=== PATIENT | male | born 1935 | race Caucasian/White ===

== ENCOUNTER 2017-10-11 10:20 | Inpatient (IN) | payer MEDICARE, BC ==
[2017-10-11] MEDS ORDERED: ISOVUE-370 76%-LOCM 1 ML ONE (11:48)
[2017-10-11 12:12] LABS: #Basophils 0.1 thou/uL (0.0-0.2); #Eosinphils 0.1 thou/uL (0.0-0.7); #Lymphocytes 1.7 thou/uL (1.20-3.40); #Monocytes 0.6 thou/uL (0.11-0.59); #Neutrophils 2.8 thou/uL (1.40-6.50); %Eosinophils 2.2 % (0.0-10.0); %Lymphocytes 32.4 % (21.0-51.0); %Monocytes 11.9 % (0.0-10.0); %Neutrophils 52.5 % (42.0-75.0); Hemoglobin 14.1 g/dL (14.0-18.0); Mean Corpuscular HGB CONC 34.9 g/dL (32.0-36.0); Mean Corpuscular Hemoglobin 31.3 pg (27.0-31.0); Mean Corpuscular Volume 89.5 fL (78.0-98.0); Mean Platelet Volume 5.8 fL (7.4-10.4); Platelet Count 218 thou/uL (130-400); RBC Distribution Width 12.2 % (11.5-14.5); Red Blood Cell (RBC) Count 4.52 mill/uL (4.70-6.10); White Blood Cell (WBC) Count 5.3 thou/uL (4.8-10.8)
[2017-10-11 12:21] LABS: PTT 27.6 SEC (22.9-36.1); Prothrombin Time 13.5 SEC (12.0-14.7)
[2017-10-11 12:34] LABS: ALT (SGPT) 27 U/L (8-55); AST (SGOT) 20 U/L (5-34); Albumin 3.9 g/dL (3.4-4.8); Alkaline Phosphatase 68 U/L (40-150); Anion Gap 12 mmol/L (10-20); BUN (Urea Nitrogen) 25 mg/dL (8.4-25.7); Bilirubin, Total 0.8 mg/dL (0.2-1.2); CK (CPK) 33 U/L (30-200); Calc. Creatinine Clearance 0 mL/min (70-130); Carbon Dioxide 22 mmol/L (23-31); Chloride 103 mmol/L (98-107); Estimated GFR-MDRD 55; Globulin 2.5 g/dL (2.4-3.5); Glucose 130 mg/dL (83-110); Potassium 4.8 mmol/L (3.5-5.1); Protein, Total 6.4 g/dL (5.8-8.1); Sodium 132 mmol/L (136-145)
[2017-10-11 12:37] LABS: CKMB 1.3 ng/mL (0-6.6); Troponin I Less than 0.010 ng/mL (< 0.028)
[2017-10-11] MEDS ORDERED: Aspirin 325 MG TAB ONE (12:40)
--- NOTE | 2017-10-11 13:37 | CT ---
NONCONTRAST CT HEAD: DAET: 10/11/17. HISTORY: Vertical nystagmus that started this morning. COMPARISON: None available. FINDINGS: There is no evidence of a hemorrhage, acute infarction, mass effect, or midline shift. There is mild cerebral volume loss. The ventricular system is normal in size, shape, and position. The visualize d paranasal sinuses and mastoid air cells are clear. Calvarial structures are intact. IMPRESSION: 1. No acute intracranial abnormality is demonstrated. 2. Mild cerebral volume loss. 3. The above findings were discussed with Dr. Calderón in the emergency department on 10/11/17 at 1114 [facility]. CODE CR POS: [id number]
--- NOTE | 2017-10-11 14:01 | CT ---
CT ANGIOGRAM HEAD WITH IV CONTRAST AND 3D RECONSTRUCTIONS CT ANGIOGRAM NECK WITH IV CONTRAST AND 3D RECONSTRUCTIONS: DATE: 10/11/17. HISTORY: Vertical nystagmus. FINDINGS: CTA NECK: Vascular calcifications are seen in the visualized aortic arch and descending thoracic aorta with min imal vascular calcifications involving the great vessels. There is a normal arrangement of great ves sels at the aortic arch. The innominate artery is patent, but there is a focal area of narrowing inv olving the proximal right subclavian artery with moderate focal area of narrowing present. The bilat eral subclavian arteries are otherwise patent. Bilateral common carotid arteries are patent. There is mild calcified atherosclerotic plaque seen involving the region of the carotid bulbs and pro ximal internal carotid arteries bilaterally. There is less than 50% maximal stenosis in the bilatera l internal carotid arteries according to NASCET criteria. There is dense calcification seen at the origin of the left vertebral artery limiting adequate evalua tion of the lumen, but there is at least mild narrowing at the origin of the left vertebral artery. The vertebral arteries are otherwise patent and codominant. Vascular calcifications are seen involvi ng the distal vertebral arteries, but no focal narrowing is present. Degenerative changes are seen in the cervical spine. There is partial visualization of a dual-lead l eft subclavian cardiac pacemaking device. Mild apical scarring is present. CT ANGIOGRAM HEAD: The bilateral middle cerebral and anterior cerebral arteries are patent. The distal bilateral verteb ral arteries are patent. The basilar artery and posterior communicating arteries are patent. No foc al stenosis or branch occlusion is seen. There is no aneurysm seen within the limitations of the angela hnique of this examination. IMPRESSION: 1. Mild atherosclerotic plaque in the region of the carotid bulbs, but there is no focal significant stenosis within the carotid arteries bilaterally by NASCET criteria. 2. Mild narrowing at the origin of the left vertebral artery, but there is less than 50% narrowing a ccording to NASCET criteria. The vertebral arteries are otherwise codominant and patent. 3. There is artifact seen at the junction of the innominate artery and right subclavian artery, but there is mild to moderate narrowing of the origin of the right subclavian artery. 4. No focal stenosis is seen involving the [place] or vertebrobasilar system. 5. The above findings were discussed with Dr. Calderón in the emergency department on 10/11/17 at 1138 [facility]. CODE CR POS: [id number]
[2017-10-11] MEDS ORDERED: hydrALAZINE 20 MG/ML VIAL SLOW IVP PRN (15:10)
[2017-10-11] MEDS ORDERED: Dextrose 50% Abboject 50 ML SYRINGE SLOW IVP PRN (15:11)
[2017-10-11] MEDS ORDERED: Dextrose 5% in Water 1,000 ML IV PRN (15:11)
--- NOTE | 2017-10-11 15:26 | PDOC.EVN ---
Event Note - Event Note Event Note: h&p [id number]
--- NOTE | 2017-10-11 16:11 | HP ---
PRIMARY CARE PHYSICIAN: Dr. Calloway. CHIEF COMPLAINT: Dizziness. HISTORY OF PRESENT ILLNESS: An 82-year-old male with a past history of type 2 diabetes, squamous luz l carcinoma, hypertension, atrial pacemaker, urinary retention, who presents with a chief complaint o f dizziness and double vision. The patient states that this started yesterday evening around 3:00, i n the morning and has been persistent. It is accompanied by a significant amount of sensation that t he room is spinning around him and inability to ambulate due to gait issues. When he stands up, the patient states that he feels like he is about to fall down. The patient denies any prior similar iss ues. He states that when he only views through one eye, he does not have double vision. His double vision only occurs when he views objects through two eyes. He has a known history of floaters and of macular degeneration, but in terms of visual acuity, has not noticed any difference from his baselin e. He denies any generalized weakness and denies any prior similar episodes either. REVIEW OF SYSTEMS: As per HPI. Constitutional: The patient endorses having a 20 pound weight loss over the last few months. Denies any fevers, denies any chills. HEENT: As per above in regards to the dizziness and visual changes. The patient also endorses longstanding hearing difficulties, speci fically in his left ear. The patient does have intermittent floaters, which are currently not presen t in the emergency department. Respiratory: Denies any shortness of breath, cough, congestion, uppe r respiratory symptoms. Cardiovascular: Denies any chest pain, denies any chest pressure. He state s that he sees a automotive software engineer over at [place] [facility] [place] and has his pacer interrogated every 3 months, has not been noted to have any issues with it. Gastrointestinal: The patient then reports a loss of appetite over the last 3-6 months that has been progressive, intermittent episodes of nausea, but no ne that are directly related with his acute episode of double vision. Denies any issues with diarrhe a, although has constipation and occasionally takes MiraLax roughly 2 times a week. Genitourinary: Recently had issues with urinary retention. He was seen by urologist approximately a week ago and wa s taken off of a fair number of steroids and subsequently had his urinary retention self resolved. P atient states that he had a prostate exam at that point in time and was not told of any known abnorma lities. Musculoskeletal: The patient has been having a significant amount of cervical myalgias and has received it sounds like 3 steroid injections over his left shoulder. Remainder of the review of systems is otherwise negative. PAST MEDICAL AND SURGICAL HISTORY: As per above, significant for, 1. Type 2 diabetes. 2. Hypertension. 3. Squamous cell carcinoma, status post Mohs surgery x7. 4. Status post atrial pacemaker for which he sees a automotive software engineer, but does not have any focal fixed other cardiac diagnoses. 5. Hyperlipidemia. 6. Status post pacemaker approximately 15 years ago. 7. Osteoporosis. HOME MEDICATIONS: Please see the EMR for full details. The patient currently has no medications lis moises in the EMR, but verbally tells me that he takes metformin 500 p.o. b.i.d., takes simvastatin in t he evening and also takes calcium and vitamin D. Other than his medications listed above, denies any over the counter or recent herbals, vitamins or supplements over the last 3 weeks. He states that f or his shoulder and neck issues approximately 2 weeks ago, was given steroid injections along with or al steroids along with hydrocodone and Flexeril. He has been taken off of these medications in the l ast week after seeing the urologist. FAMILY HISTORY: Denies any family history of similar issues. Denies any known family history of str jose francisco. SOCIAL HISTORY: Lives at home with his . Denies any alcohol, tobacco or illicit drug use. PHYSICAL EXAMINATION: GENERAL: The patient is awake, alert, conversant, in no acute distress, lying in the hospital bed. HEENT: Normocephalic, atraumatic. Slightly dry mucous membranes. The patient has some difficulty w ith lateral adduction. CARDIOVASCULAR: S1, S2. No murmurs, rubs or gallops. Pulses 2+ bilateral upper extremities. No pi tting pedal edema. RESPIRATORY: Reasonable air movement. No conversational dyspnea. No wheezes, no rales, no rhonchi. Clear to auscultation bilaterally. ABDOMEN: Positive bowel sounds, soft, nontender to palpation. MUSCULOSKELETAL: Moving all 4 extremities equally. Able to sit up in the stretcher with minimal ass ist. LABORATORY DATA AND IMAGING: On 10/11/2017, CT angiography. Impression: "Mild atherosclerotic plaqu e in the region of the carotid bulbs, but there is no focal significant stenosis within the carotid a rteries bilaterally". Mild narrowing at the origin of the left vertebral artery, but there is less t abreu 50% narrowing according to NASCET criteria. The vertebral arteries are otherwise codominant and patent. There is artifact seen at the junction of the innominate artery and right subclavian artery, but there is mild to moderate narrowing of the origin of the right subclavian artery. No focal sten osis is seen involving the [place] or vertebrobasilar system.". IMAGING: On 10/11/2017, brain CT. Impression" No acute intracranial abnormality is demonstrated. M ild cerebral volume loss. On 10/11/2017, CT [place] angiogram, same results as noted above in the CT angiography results. ASSESSMENT AND PLAN: This is an 82-year-old male who presents with a chief complaint of dizziness an d is found to have diplopia. 1. Dizziness with diplopia, concern for the possibility of a neurological involvement. The patient is likely unable to tolerate an MRI. We will require further neurological evaluation. I appreciate Neurology consultation. The patient will remain on his home statin to consider an aspirin as well an d close vital signs management. 2. Significant weight loss with recent urinary issues. Concern for possibility of an occult maligna ncy. We will obtain lumbar spine imaging given the constellation of symptoms. We will defer any fur ther evaluation to an outpatient basis. 3. Concern for possibility of vertigo. Physical therapy evaluation and close monitoring. 4. History of atrial pacemaker placement, unclear what the indication initially was. We will interr ogate the pacemaker and check orthostatic vital signs. 5. Diet: Diabetic, cardiac. 6. Activity: As tolerated. 7. Deep venous thrombosis prophylaxis. Dr. Peguero dictating for Mr. Ceron who indicates he wishes to be full code at this point in time.
--- NOTE | 2017-10-11 17:47 | RAD ---
THERE VIEWS LUMBAR SPINE: Date: 10-11-17 History: 20 lbs. weight loss. Urinary retention. Question metastatic disease. Comparison: CT lumbar spine, 06-10-12. FINDINGS: There are five non-rib bearing lumbar type vertebral bodies visualized. Vertebral body heights are wi thin normal limits. Scattered osteophytes are again seen anteriorly. There is no fracture or subluxat ion seen. No obvious lytic or sclerotic osseous lesions are seen. Vascular calcifications seen in the abdominal aorta. Contrast is seen within the renal collecting systems and urinary bladder related to recent contrasted study. IMPRESSION: 1. Mild degenerative changes in the lumbar spine without evidence of a fracture or subluxation. 2. No obvious lytic or sclerotic osseous lesions are seen. 3. Osteopenia. POS: [facility]
[2017-10-11] MEDS: HumaLOG 300 UNITS/3 ML VIAL SC PRN (17:51)
[2017-10-11] MEDS ORDERED: traZODone HCl 50 MG TAB PO SCH (23:45)
--- NOTE | 2017-10-12 00:14 | CON ---
DATE OF CONSULTATION: 10/11/2017 REFERRING PROVIDER: Latasha Peguero M.D. REASON FOR CONSULTATION: Diplopia. HISTORY OF PRESENT ILLNESS: Mr. Ceron is a pleasant 82-year-old male who has been consul moises for evaluation of diplopia. He reports that this morning around 3:00 a.m., he woke up and notice d double vision. The double vision was side to side. He went back to sleep and when he woke up in t he morning, he again continued to have double vision. He also noticed dizziness and vertigo-type sen sation. He was having difficulty with getting up off the bed and maintaining his balance. He said t hat when he got up out of the bed, he fell back onto the bed. He required support to stand up and wa lk, he noticed that the double vision was initially horizontal in nature; however, it changed to beco me more horizontal as well as oblique. It was worse with looking at distance and it improves by clos ing either eye. He did not have any headache, chest pain, palpitation, numbness, tingling or weaknes s, dysarthria or dysphagia. PAST MEDICAL HISTORY: Significant for hypertension, diabetes, history of squamous cell carcinoma, hy perlipidemia and osteoporosis. PAST SURGICAL HISTORY: Significant for surgery for squamous cell carcinoma, pacemaker placement. FAMILY HISTORY: Noncontributory. SOCIAL HISTORY: Denies smoking, alcohol use, or illicit drug use. He is . He is retired, bu t very active lifestyle. CURRENT MEDICATIONS: Please review MAR. ALLERGIES: No known drug allergies. REVIEW OF SYSTEMS: As mentioned above in the HPI is negative. PHYSICAL EXAMINATION: VITAL SIGNS: Blood pressure of 116/61, pulse of 62, temperature of 98.1, respirations of 17, O2 sats 97% on room air. GENERAL: Well-developed, well-nourished male in no apparent distress. RESPIRATORY: Clear to auscultation bilaterally. CARDIOVASCULAR: Regular rate and rhythm. NEUROLOGIC: Mental status: The patient is awake, alert, oriented x3. Speech and language: Fluent speech. Cranial nerves: The left pupil is 2 mm and reactive. Right pupil is 3 mm and reactive. He has left third nerve palsy. Face is symmetric. Tongue and uvula are midline. Motor exam showed no rmal tone and bulk with a 5/5 strength in both upper and lower extremities. There is no pronator dri ft noted. Sensory: Sensation is intact and symmetric. Deep tendon reflexes 2+ reflexes in both upp er and lower extremities. Babinski: Plantar responses flexion bilaterally. Coordination: He was n ot able to perform [id number] on either side. Finger tapping and rapid alternating hand move ments are normal on both sides. LABORATORY DATA: Reviewed, which included CBC, coag panel and CMP, which is significant for sodium 1 32, glucose of 164, otherwise unremarkable. IMAGING STUDIES: CT head without contrast was reviewed, which showed no acute intracranial abnormali ty. CT angiogram of the head and neck were reviewed, which showed no significant intracranial or ext racranial vascular abnormality. IMPRESSION: 1. Left third nerve palsy. 2. Diplopia, due to #1. 3. 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 ASSESSMENT AND PLAN: Mr. Ceron is a pleasant 82-year-old male who presented with diplopi a and difficulty with gait imbalance. On exam, he has left third nerve palsy which is likely suggest selina of a small stroke in the brainstem. Given that he has a pacemaker, we will not be able to obtain MRI scan. CT scans are very poor localizer for abnormality of the posterior fossa. I would recomme nd starting him on Plavix 75 mg daily for secondary stroke prevention. I have also advised him to we ar eye patch on each eye to be alternating every q.4-6 hours. I will recommend performing stroke wor kup including echocardiogram and lipid profile. We will recommend consulting PT, OT. I have advised him that he should not drive until further cleared by bus and sys integration senior manager, which can be done as an outpa tient. Continue supportive care. Thank you this consultation.
[2017-10-12 05:00] LABS: Cardiac Risk 3.6 (Less than 4.5)
[2017-10-12] MEDS: Enoxaparin Sodium 30 MG/0.3 ML SYRINGE SC SCH (08:37)
[2017-10-12] MEDS ORDERED: Aspirin 81 mg Enteric Coated Tablet PO SCH (09:00)
[2017-10-12] MEDS: HumaLOG 300 UNITS/3 ML VIAL SC PRN ×2 (11:30→17:18)
[2017-10-12] MEDS ORDERED: Docusate Sodium 100 MG/10 ML UDCUP PO SCH ×2 (14:30→15:15)
[2017-10-12 14:51] VITALS: BMI 22.6
--- NOTE | 2017-10-12 18:41 | PDOC.PN ---
- Subjective Encounter Start Date: 10/12/17 Encounter Start Time: 18:40 Subjective: nsg notes rev, nhung ovn, no new c/o over, still has dizziness but it is -: subjectively improved with a patch in place - Objective Vital Signs & Weight: Vital Signs (12 hours) Temp Pulse Pulse Pulse Resp BP BP 10/12/17 16:00 97.8 F 74 16 10/12/17 15:27 67 131/84 10/12/17 12:00 97.4 F L 65 16 10/12/17 09:40 64 70 117/88 144/88 H 10/12/17 08:30 97.7 F 91 16 10/12/17 07:52 97.7 F 91 16 BP Pulse Ox 10/12/17 16:00 131/84 98 10/12/17 15:27 10/12/17 12:00 133/83 96 10/12/17 09:40 10/12/17 08:30 96 10/12/17 07:52 114/69 96 Weight Admit Weight 172 lb Weight 172 lb I&O: 10/11/17 10/12/17 10/13/17 06:59 06:59 06:59 Intake Total 700 340 Output Total 350 Balance 350 340 Result Diagrams: 10/11/17 11:50 10/11/17 11:50 Additional Labs: Accuchecks 10/12/17 10/12/17 10/12/17 16:55 10:49 05:19 POC Glucose 182 H 196 H 149 H 10/11/17 21:01 POC Glucose 165 H Phys Exam - Physical Examination Constitutional: NAD seated in the hospital bed HEENT: moist MMs, sclera anicteric patch in place, normocephalic, atraumatic Respiratory: no wheezing, no rales, no rhonchi, clear to auscultation bilateral Cardiovascular: RRR, no significant murmur, no rub Gastrointestinal: soft, positive bowel sounds Musculoskeletal: no edema, pulses present Neurological: moves all 4 limbs Psychiatric: normal affect, A&O x 3 Dx/Plan - Plan cont current plan of care, plan discussed w/ family 1. Dizziness with diplopia, concern for the possibility of a CVA. Patient is unable to tolerate an MRI due to PPM. Appreciate Neurology consultation. The patient will remain on his home statin. Adding plavix to home regimen. 2. Significant weight loss with recent urinary issues. Outpatient urological evaluation recommended 3. Concern for possibility of vertigo. Physical therapy evaluation and occupational therapy. Possible IRF for gait and balance. Difficulty with ADLs at this point in time. 4. History of atrial pacemaker placement, unclear what the indication initially was. We will interrogate the pacemaker and check orthostatic vital signs. 5. Diet: Diabetic, cardiac. 6. Activity: As tolerated. 7. Deep venous thrombosis prophylaxis. Greater than 30 minutes spent discussing plan of care at bedside. Review of Systems - Medications/Allergies Allergies/Adverse Reactions: Allergies Allergy/AdvReac Type Severity Reaction Status Date / Time No Known Drug Allergies Allergy Verified 10/11/17 16:15 Medications: Current Medications Aspirin (Ecotrin) 81 mg PO DAILY [facility] Last Admin: 10/12/17 08:37 Dose: 81 mg Dextrose/Water (Dextrose 50%) 25 gm SLOW IVP PRN PRN PRN Reason: Hypoglycemia Enoxaparin Sodium (Lovenox) 30 mg SC 0900 [facility] Last Admin: 10/12/17 08:37 Dose: 30 mg Glucagon (Glucagon) 1 mg IM PRN PRN PRN Reason: Hypoglycemia Hydralazine HCl (Apresoline) 10 mg SLOW IVP Q4H PRN PRN Reason: BP > 220/110 Dextrose/Water (D5w) 1,000 mls @ 0 mls/hr IV .Q0M PRN; As Directed PRN Reason: Hypoglycemia Insulin Human Lispro (Humalog) 0 units SC .MILD SLIDING SCALE PRN PRN Reason: Mild Correctional Scale Last Admin: 10/12/17 17:18 Dose: 2 unit
[2017-10-12] MEDS: metFORMIN 500 MG TAB PO SCH (20:25)
[2017-10-12] MEDS: Simvastatin 40 MG TAB PO SCH (20:26)
[2017-10-12] MEDS ORDERED: Tamsulosin HCl 0.4 MG CAP PO SCH (21:00)
[2017-10-13] MEDS: HumaLOG 300 UNITS/3 ML VIAL SC PRN (05:48)
[2017-10-13 06:18] LABS: Cardiac Risk 3.7 (Less than 4.5)
[2017-10-13] MEDS ORDERED: Clopidogrel Bisulfate 75 MG TAB PO SCH (09:00)
[2017-10-13] MEDS: Enoxaparin Sodium 30 MG/0.3 ML SYRINGE SC SCH (09:16)
[2017-10-13] MEDS: Simvastatin 40 MG TAB PO SCH (09:16)
[2017-10-13] MEDS: metFORMIN 500 MG TAB PO SCH (09:16)
[2017-10-13 12:09] VITALS: BP 104/67; TEMP 97.5
--- NOTE | 2017-10-13 13:02 | DIS ---
DATE OF ADMISSION: 10/11/2017 DATE OF DISCHARGE: 10/13/2017 PRIMARY CARE PROVIDER: Carl Hurley. DISCHARGE DIAGNOSES: 1. Diplopia. 2. Left third nerve palsy. 3. 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 CONSULTATIONS DURING THIS HOSPITALIZATION: Neurology, Dr. Yadi Floyd. CONDITION OF PATIENT ON THE DAY OF DISCHARGE: Stable. I assessed Mr. Ceron on the day of discharg e. He reports ongoing diplopia. He denies any chest pain or shortness of breath. Vital signs are s table. S1 and S2 are heard, regular. Lungs are clear to auscultation bilaterally. HOSPITAL COURSE: Mr. Ceron is a pleasant 82-year-old gentleman who was admitted to [facility] on 10/11/2017 for diplopia. Please refer to Dr. Peguero's history and physical note for further details. He was seen by Neurology Service. He had a left third cranial nerve palsy, mos t likely secondary to brainstem stroke. MRI could not be obtained because he has a pacemaker. Plavi x was added to his medications. 2D echocardiogram on 10/12/2017 was a technically limited study and showed left ventricular ejection fraction of 50%-55%, normal sized left atrium and no thrombus in the cardiac chambers. He has been advised to wear an eye patch, alternating between the two sides, spen ding more time on the right. He has been accepted for inpatient rehabilitation and is being discharged to [facility]. DISCHARGE MEDICATIONS: Aspirin 81 mg at bedtime, Plavix 75 mg daily, metformin 500 mg 2 times a day, Zocor 40 mg 2 times a day, tamsulosin 0.4 mg at bedtime. During this hospitalization, he had triglycerides 155, cholesterol 131, LDL cholesterol 65 and HDL ch olesterol 35. Many thanks for allowing me to participate in your patient's care. Please feel free to contact me wi th any questions or concerns. DISCHARGE DESTINATION: [facility]. TOTAL AMOUNT OF TIME SPENT COORDINATING THIS DISCHARGE: 32 minutes.
== END 2017-10-13 13:01 | DRG 66 ==
LOC: ERS 10:20 → 2SE 13:33
PROVIDERS: ADMIT Internal Medicine; ATTEND Internal Medicine
DX: I63.9 Cerebral infarction, unspecified (principal); R63.4 Abnormal weight loss; M81.0 Age-related osteoporosis without current pathological fracture; Z95.0 Presence of cardiac pacemaker; E78.5 Hyperlipidemia, unspecified; H49.02 Third [oculomotor] nerve palsy, left eye
CPT/HCPCS: 36415; 36416; 70450; 70496; 70498; 72100; 80053; 80061; 82550; 82553; 84484; 85025; 85610; 85730; 86850; 86900; 86901; 93005; 93306; A4216; G8978-GP-CL; G8979-GP-CJ; G8987-GO-CJ; G8988-GO-CI; G8996-GN-CI; G8997-GN-CI; J1650

== ENCOUNTER 2019-02-25 00:50 | Day surgery (SDC) | payer MEDICARE, BC ==
[2019-02-25] MEDS ORDERED: Ondansetron PF 4 MG/2 ML Vial ONE (01:11)
[2019-02-25] MEDS ORDERED: Sterile Water 10 ML ONE (01:19)
--- NOTE | 2019-02-25 05:12 | OP ---
DATE OF PROCEDURE: 02/25/2019 DISTRIBUTION TECHNICIAN SURGEON: None. PROCEDURE PERFORMED: EGD, diagnostic. INDICATION: 1. Suspected esophageal food bolus obstruction. 2. Chronic dysphagia. 3. History of esophageal stricture. MEDICATIONS: See Anesthesia record. FINDINGS: After discussion of the risks, benefits, and alternatives of the procedure, informed consent was obtained and witnessed. Pre-endoscopic cardiopulmonary examination was satisfactory. Time-out was performed before sedation was achieved. Sedation was achieved with Anesthesia assistance in the endoscopy unit. A Pentax adult upper endoscope was placed into the oropharynx and passed through the cricopharyngeus under direct visualization. The esophageal mucosa appeared normal in the proximal and mid esophagus. In the distal esophagus, there is significant maceration of the mucosa just above the GE junction, with moderately severe esophagitis in this area as well as evidence of fibrosis. There is a mild esophageal stricture with only mild resistance to endoscope passage. There is no esophageal food bolus visualized. The upper endoscope was advanced beyond the GE junction and into the stomach. Forward and retroflexed views of the entire gastric mucosa were obtained. There were multiple food particles within the stomach. The gastric mucosa otherwise appears normal. The endoscope was advanced through the pylorus and into the first and second portions of the duodenum, which appeared normal. I did not perform esophageal dilation on this examination given his presentation with acute food bolus, and risk of complications with dilation in this context. The upper endoscope was completely withdrawn and the patient allowed to recover. The patient tolerated the procedure well. There were no immediate postprocedure complications. IMPRESSION: 1. No esophageal food bolus. Food particles in the stomach. 2. Esophagitis with mild stricture at the gastroesophageal junction. 3. Otherwise, normal EGD. RECOMMENDATION: 1. Twice daily PPI. 2. Liquid diet for the next 48 hours. 3. Chew food thoroughly. 4. Follow up with Dr. Paul at [facility] next week as already planned. Job ID: [id number]
--- NOTE | 2019-02-25 05:16 | CON ---
DATE OF CONSULTATION: 02/25/2019 REQUESTING PHYSICIAN: Dr. Carey. REASON FOR CONSULTATION: Esophageal obstruction. HISTORY OF PRESENT ILLNESS: Mr. Wang Ceron is an 83-year-old man, who presented [facility] with symptoms of esophageal foreign body obstruction. The patient states that he has a history of esophageal stricture and has undergone EGD with dilation twice in the past with Dr. Morales at [facility]. He has been having some progressive dysphagia symptoms in recent months and actually has an appointment with Dr. Morales scheduled for next week for repeat EGD. However, about 10 o'clock last night he was eating peanuts and felt as if they lodged in his chest and that sensation has not resolved since then. He has been unable to tolerate any further solid or liquids since then and has been spitting up his saliva. He has no other symptoms currently. On presentation, he is hemodynamically stable, but unable to tolerate anything by mouth even after glucagon administration. REVIEW OF SYSTEMS: Full review of systems including constitutional, head, eyes, ears, nose, throat, GI, , cardiovascular, respiratory, musculoskeletal, neurologic systems is negative except as noted in the HPI. PAST MEDICAL HISTORY: Hypertension, diabetes, CVA in July 2017, pacemaker placement, EGD with dilation x2 in the past for esophageal stricture. FAMILY HISTORY: Noncontributory. SOCIAL HISTORY: The patient denies smoking, alcohol, or drug use. ALLERGIES: NO KNOWN DRUG ALLERGIES. MEDICATIONS: 1. Metformin. 2. Simvastatin. 3. Plavix. PHYSICAL EXAMINATION: VITAL SIGNS: Temperature 98.2, blood pressure 120/78, pulse 76, 96% oxygen saturation on room air. GENERAL: An 83-year-old man standing up in the room comfortably in no distress. SKIN: No jaundice, no rashes were palpable. EYES: No scleral icterus. Extraocular movements intact. ENT: Mucous membranes moist. No oral lesions. LYMPH: No submandibular or supraclavicular lymphadenopathy. Thyroid nontender to palpation. HEART: Regular rate and rhythm. LUNGS: Clear to auscultation bilaterally. ABDOMEN: Soft, nontender to palpation. EXTREMITIES: No peripheral edema. VESSELS: Radial pulses 2+ bilaterally. NEUROLOGIC: Cranial nerves 2-12 intact bilaterally. No focal deficits. ASSESSMENT/PLAN: 1. Esophageal food bolus obstruction. 2. Chronic dysphagia. 3. History of esophageal stricture, status post multiple esophageal dilations in the past. The patient's current symptoms are consistent with esophageal food bolus obstruction. We discussed the need to proceed with EGD on an emergent basis tonight. The patient is agreeable to this. We discussed I do not usually perform esophageal dilation in the context of an acute obstruction, but he should keep his upcoming appointment with Dr. Paul next week for this purpose. Job ID: [id number]
[2019-02-25] MEDS ORDERED: Succinylcholine Chloride 20 MG/ML 10 ml SYRINGE FS ONE (12:35)
[2019-02-25] MEDS ORDERED: PROPOFOL 200 MG/20 ML VIAL ONE (12:35)
== END 2019-02-25 05:20 | disposition home or self-care (01) ==
LOC: ERS 00:50 → SDC/OP 02:53
PROVIDERS: ATTEND Internal Medicine
PROC: 0DJ08ZZ Inspection of Upper Intestinal Tract, Via Natural or Artificial Opening Endoscopic (ICD-10-PCS; principal; 2019-02-25)
DX: K22.2 Esophageal obstruction (principal); K20.9 Esophagitis, unspecified; E11.9 Type 2 diabetes mellitus without complications; I10 Essential (primary) hypertension; Z86.73 Personal history of transient ischemic attack (TIA), and cerebral infarction without residual deficits; Z79.02 Long term (current) use of antithrombotics/antiplatelets; Z79.84 Long term (current) use of oral hypoglycemic drugs; Z79.899 Other long term (current) drug therapy; Z95.0 Presence of cardiac pacemaker
CPT/HCPCS: 43235; J1610; J2405; J2704